=== PATIENT | male | born 1970 | race Caucasian/White ===

== ENCOUNTER 2022-02-14 13:00 | Day surgery (SDC) | payer OTHER ==
[2022-02-12 11:47] VITALS: BMI 27.7
[2022-02-14] MEDS ORDERED: AFRIN NASAL MIST 15 ML BOT ONE ×2 (13:28→15:16)
[2022-02-14] MEDS ORDERED: Bacitracin Zinc Ointment 30 gm TUBE ONE (15:16)
[2022-02-14] MEDS ORDERED: Lidocaine 1% w/Epinephrine 1:100K 20 ML VIAL ONE (15:16)
[2022-02-14] MEDS ORDERED: fentaNYL Citrate/PF 100 MCG/2 ML SYRINGE ONE (15:21)
[2022-02-14] MEDS ORDERED: SUGAMMADEX SODIUM 200 MG/2 ML VIAL ONE (15:32)
[2022-02-14] MEDS ORDERED: Lidocaine 1% PF 5 ML VIAL ONE (15:35)
[2022-02-14] MEDS ORDERED: PROPOFOL 200 MG/20 ML VIAL ONE (15:35)
[2022-02-14] MEDS ORDERED: Dexamethasone 20 MG/5 ML VIAL ONE (15:35)
[2022-02-14] MEDS ORDERED: Rocuronium Bromide 10 MG/ML (10ML VIAL) ONE (15:35)
[2022-02-14] MEDS ORDERED: Ondansetron PF 4 MG/2 ML Vial ONE (15:35)
[2022-02-14] MEDS ORDERED: PHENYLEPHRINE-NS 100 MCG/ML 10 ML SYRINGE ONE (15:35)
[2022-02-14] MEDS ORDERED: Ferric Subsulfate (ASTRINGYN) 8 GM VIAL ONE (15:53)
[2022-02-14] MEDS ORDERED: Hydrocodone-Acetamin 15 ML UDCUP ONE (17:58)
== END 2022-02-14 18:35 | disposition home or self-care (01) ==
LOC: SDC 13:00
PROVIDERS: ATTEND Specialist
PROC: 09TL8ZZ Resection of Nasal Turbinate, Via Natural or Artificial Opening Endoscopic (ICD-10-PCS; principal; 2022-02-14)
PROC: 0CTPXZZ Resection of Tonsils, External Approach (ICD-10-PCS; principal; 2022-02-14)
PROC: 09SM0ZZ Reposition Nasal Septum, Open Approach (ICD-10-PCS; principal; 2022-02-14)
PROC: 0CTNXZZ Resection of Uvula, External Approach (ICD-10-PCS; principal; 2022-02-14)
DX: J34.2 Deviated nasal septum (principal); J35.1 Hypertrophy of tonsils; J34.3 Hypertrophy of nasal turbinates; K13.79 Other lesions of oral mucosa; G47.33 Obstructive sleep apnea (adult) (pediatric); I10 Essential (primary) hypertension; K50.90 Crohn's disease, unspecified, without complications; Z79.899 Other long term (current) drug therapy
CPT/HCPCS: 88304; 93005; 93010; J1100; J2405; J2704